=== PATIENT | female | born 2000 | race Hispanic/Latino ===

== ENCOUNTER 2024-11-30 04:20 | Inpatient (IN) | payer MEDICAID, OTHER, SELFPAY ==
[2024-11-30] MEDS ORDERED: hydrALAZINE 20 MG/ML VIAL SLOW IVP PRN ×3 (04:40→12:13)
[2024-11-30 04:51] VITALS: BMI 35.6
[2024-11-30] MEDS ORDERED: Diphenoxylate HCl/Atropine Tablet PO PRN ×2 (05:10)
[2024-11-30] MEDS ORDERED: Methylergonovine 0.2 MG/ML VIAL IM PRN ×2 (05:10→12:13)
[2024-11-30] MEDS ORDERED: Ondansetron PF 4 MG/2 ML Vial IVP PRN ×3 (05:10→12:13)
[2024-11-30] MEDS ORDERED: Ibuprofen 800 MG TAB PO PRN (05:10)
[2024-11-30] MEDS ORDERED: Carboprost 250 MCG/ML AMP IM PRN (05:10)
[2024-11-30] MEDS ORDERED: Lidocaine 1% (PF) 30 ML VIAL SC PRN (05:10)
[2024-11-30] MEDS ORDERED: Acetaminophen 500 MG TAB PO PRN (05:10)
[2024-11-30] MEDS ORDERED: Tranexamic Acid 1,000 MG/10 ML VIAL IVP PRN (05:10)
[2024-11-30] MEDS ORDERED: Oxytocin 30 units/NS 500 ML 500 ML IV SCH ×2 (05:15→12:15)
[2024-11-30 05:59] LABS: Hematocrit 32.7 % (34.9-44.5); Hemoglobin 11.0 g/dL (12.0-15.5); Mean Corpuscular Hemoglobin 29.1 pg (27.0-33.0); Mean Corpuscular Volume 86.5 fL (81.6-98.3); Platelet Count 288 10x3/uL (150-450); Red Blood Cell (RBC) Count 3.78 10x6/uL (3.90-5.03); White Blood Cell (WBC) Count 6.18 10x3/uL (3.5-10.5)
[2024-11-30 06:34] LABS: Hep B Surf Ag - L&D Non-Reactive S/CO (NonReactive)
[2024-11-30 06:35] LABS: Syphilis Antibody Index 0.04 S/CO (<1.00 Non-Reactive)
[2024-11-30] MEDS: fentaNYL/Ropivacaine Epidural 100 ML ONE (07:43)
[2024-11-30] MEDS ORDERED: diphenhydrAMINE 50 MG/ML VIAL IVP PRN (08:02)
[2024-11-30] MEDS ORDERED: Acetaminophen 325 MG TAB PO PRN (08:02)
[2024-11-30] MEDS ORDERED: fentaNYL 2 mcg/Ropivacaine 0.2% Epidural 100 ML CADD EPIDURAL SCH (08:15)
[2024-11-30] MEDS: Oxytocin 30 units/NS 500 ML 500 ML IV SCH (08:51)
[2024-11-30] MEDS ORDERED: Preparation H Ointment 28 GM TUBE PR PRN (12:13)
[2024-11-30] MEDS ORDERED: Bisacodyl 10 MG SUPP PR PRN (12:13)
[2024-11-30] MEDS ORDERED: Benzocaine-Menthol 82.5 ML CAN TOP PRN (12:13)
[2024-11-30] MEDS ORDERED: Milk Of Magnesia 30 ML UDCUP PO PRN (12:13)
[2024-11-30] MEDS: Ibuprofen 800 MG TAB PO SCH (14:16)
[2024-11-30] MEDS: Ferrous Sulfate 325 MG TAB PO SCH (14:57)
[2024-12-02 09:23] VITALS: BP 134/83; TEMP 98.2
== END 2024-12-02 14:10 | disposition home or self-care (01) | DRG 807 ==
LOC: CSHLD/OP 04:20 → CSHLD 05:29 → CSHPP 14:00
PROVIDERS: ADMIT Family Medicine; ATTEND Family Medicine
PROC: 10E0XZZ Delivery of Products of Conception, External Approach (ICD-10-PCS; principal; 2024-11-30)
PROC: 0KQM0ZZ Repair Perineum Muscle, Open Approach (ICD-10-PCS; principal; 2024-11-30)
DX: O99.891 Other specified diseases and conditions complicating pregnancy (principal); Z37.0 Single live birth; O70.1 Second degree perineal laceration during delivery; E61.1 Iron deficiency; Z3A.38 38 weeks gestation of pregnancy
CPT/HCPCS: 36415; 51702; 85027; 86780; 86850; 86900; 86901; 87340; 99285; J0595; J2590; J7120